=== PATIENT | female | born 1970 ===

== ENCOUNTER 2018-05-14 12:15 | Inpatient (IN) | payer OTHER ==
[~2018-05-14] VITALS: Ht 167.6 cm; Wt 50.8 kg
[2018-05-14] MEDS ORDERED: AMBIEN10 MG PO (16:18)
== END 2018-05-27 14:05 | disposition home or self-care (01) | DRG 331 ==
LOC: SURH 05-21 08:30 → SURG 05-21 10:00 → O/R 05-21 10:00 → SURH 05-21 12:15 → SURG 05-22 13:57
PROVIDERS: Colon & Rectal Surgery
PROC: 0DTP0ZZ Resection of Rectum, Open Approach (ICD-10-PCS; 2018-05-21)
PROC: 07TC0ZZ Resection of Pelvis Lymphatic, Open Approach (ICD-10-PCS; 2018-05-21)
PROC: 0DT80ZZ Resection of Small Intestine, Open Approach (ICD-10-PCS; 2018-05-21)
PROC: 0D1B0Z4 Bypass Ileum to Cutaneous, Open Approach (ICD-10-PCS; 2018-05-21)
PROC: 0DJD8ZZ Inspection of Lower Intestinal Tract, Via Natural or Artificial Opening Endoscopic (ICD-10-PCS; 2018-05-21)
PROC: 0DTE0ZZ Resection of Large Intestine, Open Approach (ICD-10-PCS; principal; 2018-05-21 08:30)
DX: C20 Malignant neoplasm of rectum (principal); R33.8 Other retention of urine

== ENCOUNTER → 2018-05-14 15:54 | Outpatient (CLI) | payer OTHER ==
[~2018-05-14 15:54] MED LIST: AMBIEN10 MG PO
== END | disposition home or self-care (01) ==
LOC: LAB 15:54
DX: N39.0 Urinary tract infection, site not specified (principal)